=== PATIENT | female | born 1985 | race Caucasian/White ===

== ENCOUNTER 2018-09-08 08:48 | Inpatient (IN) | payer MEDICAID ==
[~2018-09-08] VITALS: Ht 157.5 cm; Wt 84.2 kg
[2018-09-08 09:06] VITALS: Ht 157.5 cm; Wt 84.2 kg
[2018-09-08 09:08] VITALS: BP 103/65; PULSE 65; RESP 20
[2018-09-08] MEDS ORDERED: MISOPROSTOL 200 MCG TAB PR PRN ×2 (09:30→17:00)
[2018-09-08] MEDS ORDERED: OXYTOCIN 30 UNITS/LR 500 ML IV PRN ×2 (09:30→17:00)
[2018-09-08] MEDS ORDERED: CARBOPROST 250 MCG INJ IM PRN ×2 (09:30→17:00)
[2018-09-08] MEDS ORDERED: OXYTOCIN 30 UNITS/LR 500 ML IV SCH (09:30)
[2018-09-08] MEDS ORDERED: METHYLERGONOVINE 0.2 MG INJ IM PRN ×2 (09:30→17:00)
[2018-09-08] MEDS ORDERED: CEFAZOLIN 2 GM/50 ML (PMX) 50 ML IVPB SCH (09:30)
[2018-09-08] MEDS: LACTATED RINGER'S 1,000 ML IV SCH ×2 (10:44→12:31)
--- NOTE | 2018-09-08 11:40 | PREAC ---
Date/Time of Note Date/Time of Note DATE: 09/08/18 TIME: 11:38 Anesthesia Eval and Record Evaluation Time Pre-Procedure Interview DATE: 09/08/18 TIME: 11:38 Age 32 Sex female NPO: 8 hrs Preoperative diagnosis Macrosomia Planned procedure Past Medical History Past Medical History: Includes : : (2), Para: (1), Gestational age: (39), Gestational diabetes, Other (Macrosomia) Surgery & Anesthesia Issues No known issue Meds Anticoagulation: No Beta Maria Victoria within 24 hr: No Reason Beta Maria Victoria not given: Pt. not on B-Maria Victoria Current Medications Lactated Ringer's 1,000 ml @ 125 mls/hr Q8H IV Last administered on 09/08/18at 10:44; Admin Dose 125 MLS/HR; Start 09/08/18 at 09:15 Cefazolin Sodium/ Dextrose 50 ml @ 100 mls/hr ONCE IVPB ; Start 09/08/18 at 09:30 Oxytocin/Lactated Ringer's 500 ml @ 125 mls/hr POST IV ; Start 09/08/18 at 09:30 Oxytocin/Lactated Ringer's 500 ml @ 0 mls/hr ONCE PRN IV .VAGINAL BLEEDING; Start 09/08/18 at 09:30 Methylergonovine Maleate (Methergine) 0.2 mg ONCE PRN IM .VAGINAL BLEEDING; Start 09/08/18 at 09:30 Carboprost Tromethamine (Hemabate) 250 mcg ONCE PRN IM .VAGINAL BLEEDING; Start 09/08/18 at 09:30 Misoprostol (Cytotec) 1,000 mcg ONCE PRN NV .VAGINAL BLEEDING; Start 09/08/18 at 09:30 Meds reviewed: Yes Allergies Coded Allergies: No Known Allergy (Unverified , 09/08/18) Allergies Reviewed: Yes Labs/Studies Labs Reviewed: Reviewed by anesthesiologist Result Diagram: 09/08/18 0907 Laboratory Tests 09/08/18 09:07 Blood Bank Test 09/08/18 10:45 Antibody Screen NEGATIVE Blood Type B POSITIVE Rh Immune Globulin Candidate NO test: Positive Studies: ECG (n/a), CXR (n/a) Pre-procedure Exam Last vitals Vital Signs Date Temp Pulse Resp B/P (MAP) Pulse Ox O2 O2 Flow FiO2 Time Delivery Rate 09/08/18 98.1 65 20 103/65 Room Air 09:08 (78) Airway: Adequate mouth opening, Adequate thyromental dist Mallampati: Mallampati II Teeth: Normal Lung: Normal Heart: Normal ASA Physical Status ASA physical status: 2 Emergency: None Planned Anesthetic Neuraxial: Epidural Planned Pain Management Epidural Pre-operative Attestations Prior to commencing anesthesia and surgery, the patient was re-evaluated, there was verification of: *The patient's identity *The results of appropriate recent lab work and preoperative vital signs *The above evaluation not changing prior to induction *Anesthetic plan, risk benefits, alternative and complications discussed with patient/family; questions answered; patient/family understands, accepts and wishes to proceed. OLIVE ACUNA MD Sep 08, 2018 11:40
[2018-09-08] MEDS ORDERED: CITRIC ACID/NA CITRATE 30 ML CUP PO ONE (12:00)
[2018-09-08] MEDS ORDERED: ONDANSETRON 4 MG INJ IV ONE (12:00)
--- NOTE | 2018-09-08 12:06 | HP ---
Date/Time of Note Date/Time of Note DATE: 09/08/18 TIME: 11:59 OB - History Hx of Present Free Text/Dictation 32 years old 3 para 1-0-1-1 with single intrauterine at 39 weeks with a GERARDO of 09/15/2018 admitted for elective delivery. She has A2 gestational diabetes, is on insulin. She has history of a 2 gestational diabetes in the last which was controlled with insulin. She delivered an 8-1/2 pound baby in previous . Per patient it was very traumatic delivery and she had multiple laceration. Estimated weight in current is more than 4000 g. She would like to have delivery. Chief Complaint: Scheduled for elective delivery for LGA and A2 GDM on insulin Estimated Due Date: Sep 15, 2018 : 3 Para: 1 Spontaneous : 1 Therapeutic : 0 Ultrasounds: Normal mid trimester US Obstetrical Complications: Gestational Diabetes Medical Complications: None Past Family/Social History * Past Medical, Surgical, Family and Obstetric Histories reviewed from chart. Blood Type: B+ Rubella: immune RPR/VDRL: Negative GBS Status: Negative HBsAG: Negative OB Admission Exam Vital Signs Vital Signs Vital Signs Date Temp Pulse Resp B/P (MAP) Pulse Ox O2 O2 Flow FiO2 Time Delivery Rate 09/08/18 98.1 65 20 103/65 Room Air 09:08 (78) Physical Exam HEENT: WNL Heart: Rhythm Normal Lungs: Clear Abdomen: WNL Extremities: Normal Reflexes: Normal Membranes: Intact Heart Rate: 140's Accelerations: Accelerations Present Decelerations: No Decelerations Varibility: Moderate Contractions on Admission: None Last 72 hours Lab Results CBC & BMP 09/08/18 09:07 OB Assessment/Plan Other plan: 32-year-old 3 para 1-0-1-1 with A2 gestational diabetes, LGA, history of A2 gestational diabetes and previous with traumatic vaginal delivery in the last desiring delivery. -FHR: No sign of metabolic acidosis- Category I -Continuous EFM, toco -CBC, blood type and screen -Please see the orders -B+/Rubella: Immune -GBS: Negative The risk of vaginal delivery including but not limited to bleeding, infection, cervical laceration, placental retention, injury to fetus, blood transfusion, blood transfusion related infection, risk of anesthesia, adhesion, episiotomy/laceration, possible delivery discussed with the patient. S he expressed understanding and repeat the risks. All of her questions were answered. She would like to have delivery. Higher morbidity and mortality with C/S discussed, expressed understanding. The risk of delivery including but not limited to bleeding, infection, injury to other o rgans (bowel, bladder, ureter, vessels, nerves), injury to fetus, blood transfusion, blood transfusion related infection, risk of anesthesia, adhesion and hernia formation, needs for future , removal of uterus or any other indicated surgery discussed with the patient. She expressed understanding and repeat the risks. All of her questions were answered. She signed the informed consent. The risk of delivery including but not limited to bleeding, infection, injury to other organs (bowel, bladder, ureter, vessels, nerves), injury to fetus, blood transfusion, blood transfusion related infection, risk of anesthesia, adhesion, needs for future , removal of uterus or any other indicated surgery was discussed with the patient and her family. She expressed understanding. All of her questions were answered. She signed the informed consent. PHYSICIAN'S VERIFICATION OF INFORMED CONSENT The patient was counseled regarding the procedure, its indications, risks, potential complications and alternatives and any questions were answered. Consent was obtained. PLANNED PROCEDURE/TREATMENT: delivery with possible using vacuum/forceps and any other indicated surgery PHYSICIAN'S VERIFICATION OF INFORMED CONSENT FOR BLOOD TRANSFUSION: There is a reasonable possibility that blood transfusion will be necessary as a result of the patient's procedure. I have discussed the following with the patient/patient's legal sales representative education courses: An explanation of the benefits and risks of the transfusion of blood or blood products and the possible alternatives. All questions have been answered to the patient's satisfaction. INFORMED CONSENT:The patient has been informed of: The nature of the proposed care, treatment, services, medications, interventions or procedures. Potential benefits, risks or side effects, including potential problems related to recuperation. The likelihood of achieving care treatment and service goals. Reasonable alternatives to the proposed care, treatment and service. The relevant risks, benefits and side effects related to alternatives, including the possible results of not receiving care, treatment and services. When indicated, any limitations on the confidentiality of information learned from or about the patient. If appropriate, the risks, benefits and alternatives of the drugs to be used for sedation/analgesia including moderate sedation. If appropriate, patient has been provided information on the risks, benefits and alternatives to the transfusion of blood and/or blood products. If appropriate, patient has been provided information regarding the Samir Hamida Blood Act. KATHRINE ORLANDO Sep 08, 2018 12:06
[2018-09-08] MEDS ORDERED: OXYTOCIN 10 UNIT INJ ONE (12:43)
[2018-09-08] MEDS ORDERED: morphine SULFATE/PF (10 MG/10 ML) INJ ONE (12:43)
[2018-09-08] MEDS ORDERED: PHENYLephrine (100 MCG/ML) 10ML SYG ONE (12:43)
[2018-09-08] MEDS ORDERED: DEXAMETHASONE 4 MG/ML 1 ML INJ ONE (12:59)
[2018-09-08] MEDS ORDERED: KETOROLAC 30 MG INJ ONE (12:59)
[2018-09-08] MEDS ORDERED: METOCLOPRAMIDE 10 MG INJ ONE (12:59)
[2018-09-08] MEDS ORDERED: EPHEDrine 25 MG/5 ML SYG ONE (12:59)
[2018-09-08] MEDS ORDERED: HYDROCODONE/APAP (5/325) TAB PO PRN (13:30)
[2018-09-08] MEDS ORDERED: ACETAMINOPHEN 500 MG TAB PO PRN (13:30)
[2018-09-08] MEDS ORDERED: ONDANSETRON 4 MG INJ IV PRN (13:30)
[2018-09-08] MEDS ORDERED: morphine 2 MG INJ IV PRN ×2 (13:30)
[2018-09-08] MEDS ORDERED: NALBUPHINE HCL (10 MG/1 ML) INJ IV PRN (13:30)
[2018-09-08] MEDS ORDERED: DIPHENHYDRAMINE 50 MG INJ IV PRN (13:30)
[2018-09-08] MEDS ORDERED: NALOXONE (0.4 MG/ML) INJ IV PRN (13:30)
[2018-09-08] MEDS ORDERED: HYDROmorphONE 0.5 MG/0.5 ML SYG IV PRN ×2 (13:30)
--- NOTE | 2018-09-08 14:04 | PAC ---
Date/Time of Note Date/Time of Note DATE: 09/08/18 TIME: 14:04 Post-Anesthesia Notes Post-Anesthesia Note Last documented vital signs Vital Signs Date Temp Pulse Resp B/P (MAP) Pulse Ox O2 O2 Flow FiO2 Time Delivery Rate 09/08/18 98.1 65 20 103/65 98 Room Air 14:08 (78) Activity: WNL Respiratory function: WNL Cardiovascular function: WNL Mental status: Baseline Pain reasonably controlled: Yes Hydration appropriate: Yes Nausea/Vomiting absent: Yes OLIVE ACUNA MD Sep 08, 2018 14:04
--- NOTE | 2018-09-08 14:08 | OPR ---
Operative Report Planned Procedure Procedure date Sep 08, 2018 Procedure(s) Primary low transverse delivery Performed by see signature line Medical Records Manager: LAURA GRISSOM M.D. Anesthesiologist: OLIVE ACUNA MD Pre-procedure diagnosis 32-year-old 3 para 1-0-1-1 with A2 gestational diabetes and LGA at 39 weeks desiring delivery. [id number] Anesthesia Type: [id number] spinal Post-Procedure Post-procedure diagnosis 32-year-old 3 para 1-0-1-1 with A2 gestational diabetes and LGA at 39 weeks desiring delivery. Findings 1. Normal uterus, fallopian tubes and ovaries 2. Viable female in cephalic presentation. 8 at one minute and 9 in 5 minutes. Weight: 4240 g - 9 pounds 6 ounces. Time of delivery: 13:10 3. Placenta with three vessel cord 4. Amniotic fluid - Clear Estimated Blood Loss: 600 - 700 mls Specimen(s) none Grafts/Implant(s) none Complication(s) none Pt Condition post procedure: stable Disposition: PACU Procedure Description INDICATION AND HISTORY: A 32-year-old 3 para 1-0-1-1 with A2 gestational diabetes and LGA at 39 weeks desiring delivery. The risk of delivery including but not limited to bleeding, infection, injury to other organs (bowel, bladder, ureter, vessels, nerves), injury to fetus, blood transfusion, blood transfusion related infection, risk of anesthesia, adhesion, needs for future , removal of uterus or any other indicated surgery was discussed with the patient and her family. She expressed understanding. All of her questions were answered. She signed the informed consent. DESCRIPTION OF OPERATION: The patient was taken to the operating room, where she was identified and the procedure was verified. The patient received two gram of Ancef 30 minutes prior to surgery. Spinal anesthesia was placed by anesthesiologist. The patient placed in the dorsal supine position with a left tilt. The heart rate was 128 bpm. The patient was then prepped and draped in the normal sterile fashion. A Pfannenstiel skin incision was made and carried down to the fascia with Bovie. The fascia was incised in the midline and the fascial incision was carried laterally with Castillo scissors. The superior portion of the fascial incision was then grasped with Bernardino clamps and tented up and dissected off the underlying rectus muscle with sharp dissection. The lower portion of the fascial incision was then made in a similar fashion. The rectus muscle was and the peritoneum was entered. The peritoneal incision was then stretched and a bladder blade was inserted. Then, an incision was made in the lower uterine segment in a transverse fashion with a knife and extended bluntly. The was delivered atraumatically in cephalic presentation with the abov e findings. The umbilical cord was clamped and cut. The neonatology resuscitation team was present and the baby was handed to them. A cord blood sample was obtained for further evaluation. The placenta and membrane, which appeared normal were Removed. The uterus was exteriorized and cleared of all clot and debris. The uterus was then closed in a two layer fashion with 0-[place] cryl. At the time of closure, hemostasis was noted. The gutters were irrigated. The peritoneum was reapproximated with 3-0 Vicryl. The muscle was reapproximated with 3-0 Vicryl. The fascia was approximated with 0-Vicryl in a running fashion. *The subcutaneous tissue was re approximated with 3-0 vicryl. The skin was closed with 4-0 Monocryl. All instruments, sponges and needle counts were correct x3. The patient tolerated the procedure well. She transferred to the recovery room in stable condition. KATHRINE ORLANDO Sep 08, 2018 14:08
[2018-09-08 16:15] VITALS: BP 98/51; PULSE 74; RESP 18
[2018-09-08] MEDS: DEXTROSE 5%-LR 1,000 ML IV SCH (16:38)
[2018-09-08] MEDS: OXYTOCIN 30 UNITS/LR 500 ML IV SCH ×2 (16:38→21:10)
[2018-09-08 16:45] VITALS: BP 97/56; PULSE 78
[2018-09-08] MEDS ORDERED: LANOLIN HPA 1 PKT TOP PRN (17:00)
[2018-09-08] MEDS ORDERED: MAGNESIUM HYDROXIDE 30ML CUP PO PRN (17:00)
[2018-09-08] MEDS ORDERED: METHYLERGONOVINE 0.2 MG TAB PO PRN (17:00)
[2018-09-08] MEDS: ACCU-CHEK XX SCH ×2 (17:35→21:03)
[2018-09-08 19:45] VITALS: BP 106/61; PULSE 63; RESP 18
[2018-09-08] MEDS: SENNA/DOCUSATE NA (8.6MG/50MG) TAB PO SCH (21:00)
[2018-09-08] MEDS: IBUPROFEN 800 MG TAB PO SCH (22:00)
[2018-09-08] MEDS: KETOROLAC 30 MG INJ IV PRN (23:06)
[2018-09-09] VITALS (8 sets, daily range): BP systolic 80–100; BP diastolic 44–56; PULSE 61–85; RESP 18
[2018-09-09] MEDS: DEXTROSE 5%-LR 1,000 ML IV SCH ×3 (00:38→16:38)
[2018-09-09] MEDS: KETOROLAC 30 MG INJ IV PRN ×2 (05:28→12:18)
[2018-09-09] MEDS ORDERED: LACTATED RINGER'S 1,000 ML IV ONE ×2 (05:30→15:00)
[2018-09-09] MEDS: HYDROCODONE/APAP (5/325) TAB GTB SCH ×3 (06:00→21:48)
[2018-09-09] MEDS: IBUPROFEN 800 MG TAB PO SCH ×3 (06:00→21:47)
[2018-09-09] MEDS: SENNA/DOCUSATE NA (8.6MG/50MG) TAB PO SCH ×2 (09:00→21:17)
[2018-09-09] MEDS ORDERED: HYDROCODONE/APAP (5/325) TAB NGT PRN (11:00)
[2018-09-09] MEDS ORDERED: DIPHTH/TET/ACEL PERTUSS (ADULT) 0.5 ML VIAL IM* ONE (11:00)
--- NOTE | 2018-09-09 17:05 | PN ---
Date/Time of Note Date/Time of Note DATE: 09/09/18 TIME: 17:04 OB Subjective Subjective Subjective Subjective: Tolerating diet. Voiding. Ambulating. Vaginal bleeding within normal limits. Objective: Vital signs within normal limits. H/H: 8.9/26.5 General: No apparent distress. Breast: Normal. Fundus 2 fingerbreadths below the umbilicus. Extremities nontender to palpation. Incision: C/D/I Urine output: Normal Assessment/plan: 1. IUP-postoperative day #1. Routine postoperative care. Incentive spirometer. Ice to incision for 24 hours. 2. GDMA2-Continue fingersticks. Sliding insulin as needed. 3. Acute blood lossCBC pending a.m. Disposition: Likely discharge on 09/10/2018 GINETTE ARRIAGA MD Sep 09, 2018 17:05
[2018-09-09] MEDS: FERROUS SULFATE (EC) 325 MG TAB PO SCH ×2 (17:47→21:17)
[2018-09-10] MEDS: DEXTROSE 5%-LR 1,000 ML IV SCH ×2 (00:38→19:00)
[2018-09-10 04:00] VITALS: BP 99/58; PULSE 61; RESP 17
[2018-09-10] MEDS: HYDROCODONE/APAP (5/325) TAB GTB SCH ×3 (06:00→21:48)
[2018-09-10] MEDS: IBUPROFEN 800 MG TAB PO SCH ×3 (06:01→21:48)
[2018-09-10 07:30] VITALS: BP 91/54; PULSE 62; RESP 18
[2018-09-10] MEDS: SENNA/DOCUSATE NA (8.6MG/50MG) TAB PO SCH ×2 (08:58→20:30)
[2018-09-10] MEDS: FERROUS SULFATE (EC) 325 MG TAB PO SCH ×2 (08:58→20:30)
--- NOTE | 2018-09-10 15:01 | NSTRPT ---
NST Information Datetime Report Generated by CPN: 09/10/2018 15:01 Datetime: 09/06/2018 10:34 NST Information EGA: 38.5 Test Number: 7 Time on Monitor: 09/06/2018 11:30 Time off Monitor: 09/06/2018 11:50 NST Duration (Min): 20 Reason for NST: Diabetes Mellitus; Other Reason for NST Other: [id number] Test and Monitor Explained: Monitor Explained; Test Explained; Verbalized Understanding Pulse: 68 Resp: 18 SBP: 90 DBP: 52 Test Evaluation NST Interventions: None Patient States Movement: Present Contraction Frequency: none FHR Baseline : 145 Variability: Moderate 6-25bpm Accelerations: 15X15 Decelerations: None FHR Category: Category I NST Results: Reactive Comments: To u/s jess 18.7 cm cephalic fbs 87 Electronically Signed By E-Signature: with User ID: [id number] Datetime: 09/03/2018 14:03 NST Information EGA: 38.2 NST Duration (Min): 36 Datetime: 08/30/2018 10:32 NST Information EGA: 37.5 NST Duration (Min): 33 Datetime: 08/27/2018 13:08 NST Information EGA: 37.2 NST Duration (Min): 21 Datetime: 08/23/2018 09:46 NST Information EGA: 36.5 NST Duration (Min): 20 Datetime: 08/20/2018 09:50 NST Information EGA: 36.2 NST Duration (Min): 30 Datetime: 08/16/2018 09:46 NST Information EGA: 35.5 NST Duration (Min): 26
[2018-09-10 17:14] VITALS: BP 107/55; PULSE 65; RESP 18
--- NOTE | 2018-09-10 18:19 | PN ---
Date/Time of Note Date/Time of Note DATE: 09/10/18 TIME: 18:13 OB Subjective Subjective Subjective POD#2 Patient is doing well. She denies nausea, vomiting, shortness of breath, chest pain, headache. She has been ambulating without difficulty, tolerating regular diet. Pain is well controlled on current medications OB Objective Objective Objective VS - Last 72 Hours, by Label Date Temp Pulse Resp B/P (MAP) Pulse Ox O2 O2 Flow FiO2 Time Delivery Rate 09/10/18 97.8 65 18 107/55 17:14 (72) 09/10/18 97.7 62 18 91/54 (66) Room Air 07:30 09/10/18 98.3 61 17 99/58 (72) Room Air 04:00 09/09/18 98.0 64 18 90/48 (62) Room Air 20:30 09/09/18 98.5 85 18 81/46 (58) Room Air 14:59 09/09/18 78 18 82/50 (61) Room Air 14:56 09/09/18 78 18 80/47 (58) Room Air 14:50 09/09/18 98.1 68 18 88/49 (62) Room Air 12:00 09/09/18 98.4 66 18 81/44 (56) 100 08:00 09/09/18 98.3 67 18 90/51 (64) 94 Room Air 03:41 09/09/18 98.3 61 18 100/56 95 Room Air 00:00 (71) 09/08/18 98.3 63 18 106/61 95 Room Air 19:45 (76) 09/08/18 98.1 78 97/56 (70) Room Air 16:45 09/08/18 98.1 74 18 98/51 (67) 96 Room Air 16:15 09/08/18 98.1 65 20 103/65 Room Air 09:08 (78) General: AAO X 3, comfortable, NAD, appropriate mood and affect. ABD: +BS. Soft, non-tender. Uterus 2 cm below umbilicus Incision: Clear, dry, intact. No erythema, drainage or induration. Flank: No CVA tenderness (B/L) LE: Mild edema. No clubbing, cyanosis, thigh or calf tenderness (B/L). Homans 'sign is negative OB Assessment/Plan Other plan: 32-year-old -0-1-2 with A2 gestational diabetes and LGA s/p delivery POD#2 - AF, VSS - Baby is doing well, at bed side. She is bonding well - Contraception methods with R/B/A/FR discussed - Continue care - Discharge home tomorrow - Rx and instruction given - Follow up in one and 6 weeks 2) A2GDM: Diet, exercise and significance of losing weight discussed in detail with patient. She expressed understanding. All of her questions answered. Currently her glucose is within normal limits. 75 g 2-hour glucose test at 6-12 weeks after delivery discussed with patient. KATHRINE ORLANDO Sep 10, 2018 18:19
[2018-09-10 20:00] VITALS: BP 98/60; PULSE 70; RESP 18
[2018-09-10] MEDS: ACCU-CHEK XX SCH (21:00)
[2018-09-11] MEDS: DEXTROSE 5%-LR 1,000 ML IV SCH (00:38)
[2018-09-11 04:00] VITALS: BP 93/51; PULSE 52; RESP 18
[2018-09-11] MEDS: IBUPROFEN 800 MG TAB PO SCH ×2 (05:54→13:49)
[2018-09-11] MEDS: HYDROCODONE/APAP (5/325) TAB GTB SCH ×2 (05:54→14:00)
[2018-09-11] MEDS: ACCU-CHEK XX SCH ×2 (07:35→11:20)
[2018-09-11 08:00] VITALS: BP 101/57; PULSE 67; RESP 18
[2018-09-11] MEDS: SENNA/DOCUSATE NA (8.6MG/50MG) TAB PO SCH (08:30)
[2018-09-11] MEDS: FERROUS SULFATE (EC) 325 MG TAB PO SCH (08:30)
[2018-09-11] MEDS ORDERED: MEASLES,MUMPS,RUBELLA VACCINE INJ SC* ONE (09:00)
[2018-09-11] MEDS ORDERED: DIPHTH/TET/ACEL PERTUSS (ADULT) 0.5 ML VIAL IM* ONE ×2 (09:00→12:30)
--- NOTE | 2018-09-11 09:50 | DS ---
Date/Time of Note Date/Time of Note DATE: 09/11/18 TIME: 09:46 Obstetrical Discharge Record Final Diagnosis Final Diagnosis: Term delivered Other Final Diagnosis 32-year-old -0-1-2 with A2 gestational diabetes and LGA s/p delivery POD#3. course was unremarkable. She is ambulating and tolerating regular diet. Pain is controlled on current medication. She is voiding without difficulty. - AF, VSS - Baby is doing well, at bed side. She is bonding well - Contraception methods with R/B/A/FR discussed - Continue care - Discharge home - Rx and instruction given - Follow up in one and 6 weeks 2) A2GDM: Diet, exercise and significance of losing weight discussed in detail with patient. She expressed understanding. All of her questions answered. Currently blood glucose are within normal limits. 75 g 2-hour glucose test at 6-12 weeks after delivery discussed with patient. 3) Anemia: Recommend ferrous sulfate 325 mg 2 tablet daily for 3 months and continue vitamin Section Section: Primary (Suspected macrosomia) Condition on Discharge Physical Assessment Last Vitals: Vital Signs Date Temp Pulse Resp B/P (MAP) Pulse Ox O2 O2 Flow FiO2 Time Delivery Rate 09/11/18 97.8 52 18 93/51 (65) Room Air 04:00 09/09/18 100 08:00 Voiding: Yes Bowel Movement: Yes Breast: Soft, non-tender Fundus: Firm Calf Tenderness: No Patient Condition: Stable KATHRINE ORLANDO Sep 11, 2018 09:50
--- NOTE | 2018-09-12 15:48 | DELSUM ---
Delivery Summary A-C Datetime Report Generated by CPN: 09/12/2018 15:47 DELIVERY PERSONNEL Tank Truck Milk Receiver: Cubil, Tiffany MATERNAL INFORMATION Delivery Anesthesia: Spinal Medications in Delivery: see anesthesia Delivery QBL (ml): 700 Placenta Cultured: No Maternal Complications: Other Other Maternal Complications: macrosomia LABOR SUMMARY EDC: 09/15/2018 00:00 No. Babies in Womb: 1 Attempted: No Labor Anesthesia: None LABOR INFORMATION Reason for Induction: Not Applicable Group B Beta Strep: Negative Antibiotics # of Doses: 1 Antibiotics Time of Last Dose: 09/08/2018 12:35 Steroids Given: None Reason Steroids Not Administered: Not Applicable MEMBRANES Membranes Rupture Method: Artificial Rupture of Membranes: 09/08/2018 13:09 Length of Rupture (hr): 0.02 Amniotic Fluid Color: Clear Amniotic Fluid Amount: Moderate Amniotic Fluid Odor: Normal STAGES OF LABOR Stage 3 hr: 0 Stage 3 min: 1 CSECTION DELIVERY Primary Indication: Other Other Primary Indication: macrosomia Secondary Indication: N/A CSection Urgency: Non Elective CSection Incidence: Primary Labor: No Labor Elective: Nonelective CSection Incision: Lower Uterine Transverse BABY A INFORMATION Delivery Date/Time: 09/08/2018 13:10 Method of Delivery: Born in Route : No : N/A Forceps: N/A Vacuum Extraction: N/A Shoulder Dystocia : N/A ASSISTED DELIVERY BABY A Indication for Assisted Delivery: assist in delivery of head Catheter Prior to Procedure: Yes Position Vacuum/Forcep Apply: Left Occipital Anterior Vacuum Number of Pulls: 1 Vacuum Number of PopOffs: 0 Vacuum Sprinkler Fitter: Care Team [employer] Vacuum/Forceps Comment: vacuum done during section to assist delivery of head, pressure con trolled by MD, pull x1 SHOULDER DYSTOCIA BABY A Delivery Date/Time: 09/08/2018 13:10 PRESENTATION/POSITION BABY A Presentation: Cephalic Cephalic Presentation: Vertex Vertex Position: Left Occipital Anterior Breech Presentation: N/A PLACENTA INFORMATION BABY A Placenta Delivery Time : 09/08/2018 13:11 Placenta Method of Delivery: Manual Removal Placenta Status: Delivered SCORES BABY A Heart Rate 1 min: >100 bpm Resp Effort 1 min: Good Cry Reflex Irritability 1 min: Cough/Sneeze/Pulls Away Muscle Tone 1 min: Active Motion Color 1 min: Blue/Pale Resuscitation Effort 1 min: Tactile Stimulation; Oxygen SCORE 1 MIN: 8 Heart Rate 5 min: >100 bpm Resp Effort 5 min: Good Cry Reflex Irritability 5 min: Cough/Sneeze/Pulls Away Muscle Tone 5 min: Active Motion Color 5 min: Body Higgins, Extremit Blue Resuscitation Effort 5 min: Tactile Stimulation SCORE 5 MIN: 9 INFANT INFORMATION BABY A Gestational Age at Delivery: 39.0 Gestational Status: Full Term- 39- 40.6 Weeks Infant Outcome : Liveborn, with signs of life Condition : Stable Sex: Female IDENTIFICATION/MEDS BABY A ID Band Number: [id number] ID Band Location: Right Leg; Right Arm Sensor Applied: Yes Sensor Number: [id number] Sensor Location : Cord Clamp Vitamin K Given : Not Given Erythromycin Given: Not Given WEIGHT/LENGTH BABY A Infant Birthweight (gm): 4240 Infant Weight (lb): 9 Infant Weight (oz): 6 Infant Length (in): 20.50 Infant Length (cm): 52.07 CORD INFORMATION BABY A No. Cord Vessels: 3 Nuchal Cord : N/A Cord Blood Taken: Yes Infant Suction: Mouth; Nose ASSESSMENT BABY A Infant Complications: None Physical Findings at Delivery: Within Normal Limits Infant Respirations: Appears Normal Vp Data/ALS Called : No Infant Care By: michael gomez Transferred To: Remains with Mother
== END 2018-09-11 15:30 | disposition home or self-care (01) | DRG 788 ==
LOC: L-D 08:48 → PP1 16:10
PROVIDERS: ADMIT Obstetrics & Gynecology; ATTEND Obstetrics & Gynecology
PROC: 10D00Z1 Extraction of Products of Conception, Low, Open Approach (ICD-10-PCS; principal; 2018-09-08 10:30)
DX: O24.429 Gestational diabetes mellitus in childbirth, unspecified control (principal); O99.02 Anemia complicating childbirth; Z3A.39 39 weeks gestation of pregnancy; Z37.0 Single live birth
CPT/HCPCS: 82947; 82962; 85025; 85610; 85730; 86592; 86850; 86900; 86901; 87340; 90715; 99464; J0690; J1100; J1885; J2274; J2370; J2405; J2590; J2765; J7120; J7121